=== PATIENT | female | born 1960 | race Caucasian/White ===

== ENCOUNTER 2020-05-30 09:48 | Outpatient (CLI) | payer OTHER, SELFPAY ==
--- NOTE | 2020-05-30 10:03 | MM_ITS ---
WS: [id number] DIAGNOSTIC BILATERAL DIGITAL MAMMOGRAM WITH CAD LEFT breast ultrasound, complete. HISTORY: NIPPLE DISCHARGE LT BREAST COMPARISON: 10/19/2015 TECHNIQUE: Bilateral craniocaudad, mediolateral oblique, and mediolateral views are submitted. Spot c ompression LEFT CC. Computer aided detection utilized. Breast composition: The breasts are heterogeneously dense, which may obscure small masses. Very dense fibroglandular tissue. Increased focal density in the upper outer quadrant of the LEFT breast. There are no suspicious masses or distortion identified. No nipple retraction. LEFT breast ultrasound, complete. Ultrasound is performed of the LEFT breast. Very dense fibroglandular tissue with no shadowing. No s olid masses or cysts identified. No duct dilatation. MM/[place] [id number] IMPRESSION: BI-RADS: 2-Benign FOLLOW UP: 1 Year Follow-up Bilateral mammography and ultrasound no abnormality identified to explain the n ipple discharge. If discharge persists consider surgical follow-up and evaluati on.
== END 2020-05-30 09:49 | disposition home or self-care (01) ==
PROVIDERS: Family Provider Family Medicine; PCP Family Medicine; Visit Provider Family Medicine
DX: N64.52 Nipple discharge (principal)
CPT/HCPCS: 76642; 77066

== ENCOUNTER 2021-04-01 07:02 | Outpatient (CLI) | payer OTHER, SELFPAY ==
[2021-04-01 08:11] VITALS: BMI 22.8
--- NOTE | 2021-04-01 08:12 | PC.NURSE ---
when pt arrived i explained the process of the lexiscan test. she made it clear she was very apprehensive about the nuclear aspect of the testing. i called stanley from [facility] to help explain the nuclear side of the test. she was still just very hesitant to do it. we decided to call dr thorpe to see if he would be willing to do a different test without imaging. per dr thorpe order the test will be changed to a plain treadmill. pt is okay with that and we will proceed with the plain treadmill stress test.
--- NOTE | 2021-04-01 08:15 | ECG_ITS ---
[facility] Test Date: 2021-04-01 Pat Name: Sara Bush Department: Room: Gender: Female Pulverizer: : 1960 Requested By: Demarcus Jackson Order Number: [id number] Tamela MD: Jose A Vega M.D. Interpretive Statements NAME OF STUDY: TREADMILL STRESS TEST INDICATION: Chest Pain PROCEDURE: At the baseline, the patient's blood pressure was with a heart rate of. The baseline electrocardiogram showed normal sinus rhythm with normal ST-Ts. Poor R wave progression. Possible left atrial enlargement. The patient exercised for 12 minutes and 33 seconds on a standard Ar[facility] protocol. Patient attained a maximum heart rate of 154 beats per minute( 97 % of the maximum predicted heart rate) with a blood pressure at the peak exercise of 140/66 mm Hg. The EKG at the peak exercise revealed no significant changes. Patient did not have any chest pain or any significant cardiac arrhythmias with the exercise During the recovery phase, there were no new changes. Blood pressure at the end of the recovery phase was 108/75 mm Hg with a heart rate of 99 per minute. CONCLUSION: 1. Normal EKG response to treadmill exercise 2. No exercise-induced chest pain or cardiac arrhythmia 3. Good exercise tolerance, attained a maximum of 17.2 METs Electronically Signed On 04-02-2021 22:25:06 DIVER PUMPER by Jose A Vega M.D. [email or web address]
[2021-04-01 09:00] VITALS: BP 108/75; PULSE 99
== END 2021-04-01 07:03 | disposition home or self-care (01) ==
PROVIDERS: PCP Family Medicine; Visit Provider Family Medicine
DX: R07.9 Chest pain, unspecified (principal); R53.1 Weakness
CPT/HCPCS: 93017

== ENCOUNTER → 2021-09-24 16:46 | Outpatient (BNVA) | payer OTHER, SELFPAY | PROVIDERS: PCP Family Medicine; Visit Provider Family Medicine | DX: R07.9 Chest pain, unspecified (principal); R53.1 Weakness | CPT/HCPCS: 80053; 82495; 83018 ==

== ENCOUNTER 2022-02-27 06:00 | Outpatient (RCR) | payer OTHER, SELFPAY | END 2022-03-17 23:59 | disposition home or self-care (01) | LOC: SPT 06:00 | PROVIDERS: PCP Family Medicine; Visit Provider Orthopaedic Surgery | DX: Z98.890 Other specified postprocedural states (principal); S83.281D Other tear of lateral meniscus, current injury, right knee, subsequent encounter; X58.XXXD Exposure to other specified factors, subsequent encounter | CPT/HCPCS: 97110; 97161 ==

== ENCOUNTER → 2023-09-14 13:47 | Outpatient (BNVA) | payer MEDICARE, SELFPAY | PROVIDERS: PCP Family Medicine; Visit Provider Family Medicine | DX: A93.8 Other specified arthropod-borne viral fevers (principal) | CPT/HCPCS: 80053; 85025; 86140 ==

== ENCOUNTER → 2023-09-16 10:36 | Outpatient (BNVA) | payer MEDICARE, SELFPAY | PROVIDERS: PCP Family Medicine; Visit Provider Family Medicine | DX: A93.8 Other specified arthropod-borne viral fevers (principal); R79.89 Other specified abnormal findings of blood chemistry | CPT/HCPCS: 80053; 80074; 83880; 85025; 86140 ==

== ENCOUNTER → 2023-09-18 12:07 | Outpatient (BNVA) | payer MEDICARE, SELFPAY | PROVIDERS: PCP Family Medicine; Visit Provider Family Medicine | DX: A93.8 Other specified arthropod-borne viral fevers (principal) | CPT/HCPCS: 80053; 85025 ==

== ENCOUNTER → 2023-09-23 08:42 | Outpatient (BNVA) | payer MEDICARE, SELFPAY | PROVIDERS: PCP Family Medicine; Visit Provider Family Medicine | DX: R79.89 Other specified abnormal findings of blood chemistry (principal); A93.8 Other specified arthropod-borne viral fevers | CPT/HCPCS: 80053; 85025; 86140 ==

== ENCOUNTER → 2023-09-30 11:52 | Outpatient (BNVA) | payer MEDICARE, SELFPAY | PROVIDERS: PCP Family Medicine; Visit Provider Family Medicine | DX: R79.89 Other specified abnormal findings of blood chemistry (principal); A93.8 Other specified arthropod-borne viral fevers | CPT/HCPCS: 80053; 85025 ==

== ENCOUNTER 2024-03-06 20:52 | Inpatient (IN) | payer MEDICARE, SELFPAY ==
[2024-03-06 21:18] VITALS: BP 97/59; PULSE 81; RESP 18; TEMP 37.9; O2SAT 92
--- NOTE | 2024-03-06 21:46 | XRR_ITS ---
PROCEDURE INFORMATION: Exam: XR Chest Exam date and time: 03/06/2024 10:05 PM Age: 63 years old Clinical indication: Cough and fever; Patient HX: Cough with fever TECHNIQUE: Imaging protocol: Radiologic exam of the chest. Views: 1 view. COMPARISON: No relevant prior studies available. FINDINGS: Lungs: The lung bases are suboptimally assessed due to technique however the upper lungs are clear of focal consolidation. Mild nonspecific bibasilar reticular interstitial prominence of uncertain chronicity. Comparison prior exam may be helpful if available. There is a density/mass in the right hilar region. Pleural spaces: Unremarkable. No pleural effusion. No pneumothorax. Heart/Mediastinum: Cardiac silhouette appears normal in size. No obvious vascular congestion. Bones/joints: No acute osseous findings. Other findings: Single view was submitted. XR/XR chest 1V portable [id number] IMPRESSION: 1. Right hilar density/mass. CT correlation is recommended, preferably with IV contrast if possible. 2. No obvious acute consolidation. Mild nonspecific reticular prominence in the lung bases. Suboptimal lung base assessment. Followup including lateral view may be obtained if clinically indicated.
--- NOTE | 2024-03-06 21:49 | W.ED.URI ---
HPI - URI/Sore Throat General: Chief Complaint: Upper Respiratory Infection Stated Complaint: Fever, N/V Time Seen by Provider: 03/06/24 21:20 History of Present Illness: 63-year-old female comes in today with cough, nausea and vomiting, and poor appetite starting on Thursday of last week. Patient reports being seen on Thursday at [facility] and started on antibiotics and steroids. Patient was only able to keep down 1 dose of antibiotics starting yesterday. Patient has taken some of the prednisone. Patient denies any chronic medical problems and takes no routine medicines. Patient has had a hip replacement and hip resurfacing procedure. Patient appears unwell but not toxic. Patient and family reports some mild confusion. Related Data Home Medications Medication Instructions Recorded Confirmed cholecalciferol (vitamin D3) 125 125 mcg PO DAILY 04/09/21 09/23/23 mcg (5,000 unit) capsule multivitamin 1 tab PO DAILY 04/09/21 09/23/23 omega-3 fatty acids 1,000 mg 1,000 mg PO DAILY 04/09/21 09/23/23 capsule vitamin B complex (B 1 tab PO DAILY 04/09/21 09/23/23 Complex-Vitamin B12 tablet) zinc 50 mg tablet 50 mg PO DAILY 04/09/21 09/23/23 Previous Rx's Medication Instructions Recorded magnesium oxide 400 mg PO DAILY #90 caps 04/09/21 doxycycline hyclate 100 mg capsule 100 mg PO BID #10 caps 09/24/23 Allergies Allergy/AdvReac Type Severity Reaction Status Date / Time Pertussis Vaccines Allergy Unknown Unknown Verified 03/06/24 21:25 Review of Systems General: Reports: 10 or more systems reviewed and unremarkable except in HPI and below PFSH ED PFSH: Medical History Right knee meniscal tear Surgical History S/P total hip resurfacing Family History Father Hypertension Stroke Social History Smoking and tobacco/nicotine status: never used tobacco/nicotine Alcohol intake: never Substance/Drug Use: never Physical Exam Const: COMMON NORMALS: alert HENMT: COMMON NORMALS: normocephalic HEAD & SCALP: normocephalic THROAT: posterior oropharynx normal Neck/C-Spine: COMMON NORMALS: full ROM Chest: COMMONS NORMALS: normal inspection of the chest Resp: COMMON NORMALS: normal respiratory effort AUSCULTATION: crackles (Posterior lower right) Cardio: COMMON NORMALS: regular rate and regular rhythm RATE: regular rate RHYTHM: regular rhythm GI: COMMON NORMALS: Soft to palpation PALPATION: Yes Soft to palpation Back/Pelvis: COMMON NORMALS: thoracic and lumbar spine normal to inspection Extremity: COMMON NORMALS: full ROM Neuro: SENSORIUM/ORIENTATION: Yes alert Skin: COMMON NORMALS: turgor normal GENERAL SKIN EXAM: turgor normal Course Vital Signs: Vital signs: Vital Signs Temperature 100.3 F H 03/06/24 21:18 Pulse Rate 77 03/06/24 23:01 Respiratory Rate 18 03/06/24 23:01 Blood Pressure 100/63 03/06/24 23:01 Pulse Oximetry 91 03/06/24 23:01 Oxygen Delivery Me thod Room Air 03/06/24 23:01 MDM - URI/Sore Throat Medical Decision Making Patient comes in today for illness since last Thursday. Patient was seen at her [facility] on Thursday and started on doxycycline and prednisone. Patient reports difficulty holding down fluids. Patient reports only and able to tolerate 1 dose of antibiotic as of now. Patient has taken a couple doses of the prednisone. Patient reports that the fever started on Thursday. On exam right posterior auscultation of the lungs notes some crackles. Vital signs are normal except for temperature of 100.3, and pulse ox is 92% on room air. Differential diagnosis includes pneumonia, viral syndrome, dehydration, gastroenteritis, sepsis. Patient's white blood cell count was 15.9. Sodium was 121, lactic was 1.1. Chest x-ray noted some consolidation in the infrahilar markings of the right lung field and patchy infiltrates into the right lower lung. Reviewed patient with Dr. Santana who accepted patient to [facility] for further treatment of pneumonia and hyponatremia. I did try to get a swab for COVID, flu, and RSV but patient refused swab. Lab Data 03/06/24 21:57 03/06/24 21:57 Laboratory Results WBC 15.99 10^3/uL (3.29-11.43) H 03/06/24 21:57 RBC 4.03 10^6/uL (3.85-5.65) 03/06/24 21:57 Hgb 12.00 g/dL (11.27-16.99) 03/06/24 21:57 Hct 35.4 % (36-47) L 03/06/24 21:57 MCV 87.8 fl (85-98) 03/06/24 21:57 MCH 29.8 pg (27-33) 03/06/24 21:57 MCHC 33.9 g/dL (30-55) 03/06/24 21:57 RDW 12.5 % (12.1-15.1) 03/06/24 21:57 Plt Count 169 10^3/cmm (157-399) 03/06/24 21:57 MPV 10.3 fL (7.4-10.4) 03/06/24 21:57 Lymph % (Auto) Not Reportable 03/06/24 21:57 [place] % (Auto) Not Reportable 03/06/24 21:57 Lymph # (Auto) Not Reportable 03/06/24 21:57 [place] # (Auto) Not Reportable 03/06/24 21:57 Total Counted 100 (0-100) 03/06/24 21:57 Atypical Lymphs % 2.0 % (0-5) 03/06/24 21:57 Absolute Neutrophils 15.0 10^3/cmm (1.4-6.5) H 03/06/24 21:57 Segmented Neutrophils 76 % 03/06/24 21:57 Band Neutrophils 18.0 % 03/06/24 21:57 Absolute Lymphocytes 0.5 10^3/cmm (1.2-3.4) L 03/06/24 21:57 Lymphocytes (Manual) 1 % 03/06/24 21:57 Monocytes (Manual) 3.0 % 03/06/24 21:57 Absolute Monocytes 0.5 10^3/cmm (0.1-0.6) 03/06/24 21:57 Eosinophils (Manual) 0 % 03/06/24 21:57 Absolute Eosinophils 0.0 10^3/cmm (0.0-0.7) 03/06/24 21:57 Basophils (Manual) 0.0 % 03/06/24 21:57 Absolute Basophils 0.0 10^3/cmm (0.0-0.2) 03/06/24 21:57 Platelet Estimate Normal (Normal) 03/06/24 21:57 Sodium 121 mmol/L (136-145) L 03/06/24 21:57 Potassium 4.2 mmol/L (3.5-5.1) 03/06/24 21:57 Chloride 91 mmol/L (98-107) L 03/06/24 21:57 Carbon Dioxide 22 mmol/L (22-29) 03/06/24 21:57 Anion Gap 12.2 (5-19) 03/06/24 21:57 BUN 15 mg/dL (8-23) 03/06/24 21:57 Creatinine 0.6 mg/dL (0.5-0.9) 03/06/24 21:57 GFR Calculation 100.3 mL/min (90-130) 03/06/24 21:57 Glucose 132 mg/dL (65-115) H 03/06/24 21:57 Calculated Osmolality 255 mOsm/kg (285-295) L 03/06/24 21:57 Lactic Acid 1.1 mmol/L (0.5-2.2) 03/06/24 22:14 Calcium 8.6 mg/dL (8.5-10.5) 03/06/24 21:57 Total Bilirubin 0.4 mg/dL (0.15-1.2) 03/06/24 21:57 AST 21 U/L (0-32) 03/06/24 21:57 ALT 22 U/L (0-33) 03/06/24 21:57 Alkaline Phosphatase 86 U/L (35-105) 03/06/24 21:57 Total Protein 6.9 g/dL (6.6-8.7) 03/06/24 21:57 Albumin 3.4 g/dL (3.5-5.2) L 03/06/24 21:57 Globulin 3.5 g/dL (1.3-4.6) 03/06/24 21:57 XR interpretation done by ED provider, pending radiology final review Discharge Plan Discharge Patient Disposition: Admitted As Inpatient Clinical Impression: Acute hyponatremia Pneumonia Qualifiers: Pneumonia type: due to unspecified organism Laterality: right Lung location: unspecified part of lung Qualified Code(s): J18.9 - Pneumonia, unspecified organism Condition: Stable Coding Level 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
[2024-03-06 22:06] LABS: Hematocrit 35.4 % (36-47); Mean Corpuscular HGB Conc 33.9 g/dL (30-55); Mean Corpuscular Hemoglobin 29.8 pg (27-33); Mean Corpuscular Volume 87.8 fl (85-98); Mean Platelet Volume 10.3 fL (7.4-10.4); Platelet Count 169 10^3/cmm (157-399); Red Blood Count 4.03 10^6/uL (3.85-5.65); Red Cell Distribution Width 12.5 % (12.1-15.1); White Blood Count 15.99 10^3/uL (3.29-11.43)
--- NOTE | 2024-03-06 22:06 | PC.NURSE ---
pt refusing respiratory swabs due to issues with the covid pandemic.
[2024-03-06] MEDS: cefTRIAXone 2,000 mg SDV 2000 MG IVP (22:15)
[2024-03-06] MEDS: sodium chloride 0.9% 1,000 ML 999 ML IV (22:16)
[2024-03-06 22:22] LABS: Alanine Aminotransferase 22 U/L (0-33); Albumin Level 3.4 g/dL (3.5-5.2); Alkaline Phosphatase 86 U/L (35-105); Anion Gap 12.2 (5-19); Aspartate Amino Transferase 21 U/L (0-32); Blood Urea Nitrogen 15 mg/dL (8-23); Calcium 8.6 mg/dL (8.5-10.5); Carbon Dioxide 22 mmol/L (22-29); Chloride 91 mmol/L (98-107); Globulin 3.5 g/dL (1.3-4.6); Glomerular Filtration Rate 100.3 mL/min (90-130); Glucose 132 mg/dL (65-115); Osmolality Calculated 255 mOsm/kg (285-295); Potassium 4.2 mmol/L (3.5-5.1); Sodium 121 mmol/L (136-145); Total Bilirubin 0.4 mg/dL (0.15-1.2); Total Protein 6.9 g/dL (6.6-8.7)
[2024-03-06 22:25] LABS: Absolute Segmented Neutrophil 12.2 10/cmm (1.6-7.1); Band Neutrophils Absolute 2.9 10^3/cmm (0.0-1.2); Lymphocytes 1 %; Monocytes Absolute 0.5 10^3/cmm (0.1-0.6); Segmented Neutrophils 76 %; Slide Review Slide Review Perform; Total Cells Counted 100 (0-100)
[2024-03-06 22:26] LABS: Eosinophils 0 %; Lymphocytes Absolute 0.5 10^3/cmm (1.2-3.4); Platelet Estimate Normal (Normal)
[2024-03-06 22:46] LABS: Lactic Sepsis W/Reflex 1.1 mmol/L (0.5-2.2)
[2024-03-06 23:01] VITALS: BP 100/63; PULSE 77; RESP 18; O2SAT 91
[2024-03-06 23:51] LABS: Bilirubin Urine Negative (Negative); Blood Urine Negative (Negative); Glucose Urine UA Negative (Normal); Ketones Urine Negative (Negative); Leukocyte Esterase Urine Negative (Negative); Nitrate Urine Negative (Negative); Protein Urine 2+ (Negative); Specific Gravity, Urine 1.012 (1.005-1.030); Urine Appearance Clear (CLEAR); Urine Color Yellow (Yellow)
[2024-03-06 23:52] VITALS: BP 97/62; PULSE 77; O2SAT 91
[2024-03-06 23:53] LABS: Add Urine Microscopic? YES; Bacteria Urine None Seen /hpf; Hyaline Casts Urine 0-4 /lpf; RBC Urine 0-2 /hpf (0-2); Squamous Epithelial Cell Urine 0-5 /hpf (0-5); Universal Test for UA Present (0); WBC Urine 0-5 /hpf (0-5)
[2024-03-07] VITALS (7 sets, daily range): BP systolic 109–132; BP diastolic 67–80; PULSE 68–85; RESP 17–19; TEMP 36.5–36.9; O2SAT 91–95; BMI 16.9
[2024-03-07 00:05] LABS: Add Urine Culture? No
[2024-03-07] MEDS: acetaminophen 325 mg Tablet 650 MG PO ×2 (01:26→13:25)
--- NOTE | 2024-03-07 02:00 | P.HP_ITS ---
Providers/Chief Complaint 2 Admitting Physician: Marta Santana MD Primary Care Provider: Demarcus Worley MD Chief Complaint: Fever, N/V History of Present Illness Sara Bush is a 63 year old female without significant known medical comorbidities who is presenting to the hospital today with 5 to 6 days of fever, chills, nonproductive cough, generalized fatigue and malaise which has been progressively getting worse since onset. Since yesterday she also developed nausea and vomiting. She has vomited 3-5 times today. She was prescribed doxycycline yesterday for her symptoms, however thus far has only taken 1 dose, was unable to keep it down due to excessive vomiting. No diarrhea. No other sick contacts. No URI symptoms. She was febrile to 103 Fahrenheit at home. She presented to the emergency room today for these symptoms. No recent travel. No chest pain. Currently saturating 91% on room air Review of Systems 2 General: Reports: 10 or more systems reviewed and unremarkable except in HPI and below Const: Denies: fever(s), chills or body aches Eyes: Denies: change in vision, blurry vision or photophobia ENMT: Reports: hoarseness; Denies: throat pain, enlarged tonsils, odynophagia or nasal congestion Card: Denies: chest pain, palpitations, irregular heart rhythm, edema, swelling of feet/ankles, lightheadedness, pre-syncope, dyspnea on exertion or orthopnea Resp: Denies: dyspnea, productive cough, non-productive cough, wheezing, stridor, pain on inspiration, change in phlegm color, hemoptysis or chest congestion GI: Denies: abdominal pain, nausea, vomiting, hematemesis, coffee ground emesis, dysphagia, heartburn, diarrhea, constipation, GI cramping, change in stool character, hematochezia or melena : Denies: flank pain, difficulty voiding, dysuria, urinary frequency, urinary urgency, urinary hesitancy or hematuria Musc: Denies: neck pain, back pain, extremity pain, joint swelling, joint warmth or deformity Neuro: Denies: headache(s), numbness in extremities, weakness in extremities, sensory changes, difficulty walking, frequent falls, dizziness, vertigo, behavioral changes, Slurred speech present or seizure-like activity Psych: Denies: anxiety, depression, suicidal ideation or homicidal ideation Endo: Denies: polyuria, polydipsia, tired all the time, cold intolerance or hot flashes [place]/Lymph: Denies: easy bruising or easy bleeding Medications/Allergies Home Medications Medication Instructions Recorded Confirmed Last Taken Type cholecalciferol (vitamin D3) 125 125 mcg PO DAILY 04/09/21 03/07/24 02/25/24 History mcg (5,000 unit) capsule multivitamin 1 tab PO DAILY 04/09/21 03/07/24 02/25/24 History omega-3 fatty acids 1,000 mg 1,000 mg PO DAILY 04/09/21 03/07/24 02/25/24 History capsule vitamin B complex (B 1 tab PO DAILY 04/09/21 03/07/24 02/25/24 History Complex-Vitamin B12 tablet) magnesium oxide See Rx Instructions .Route .COMPLEX 03/07/24 03/07/24 02/25/24 History zinc 10 mg tablet 30 mg PO DAILY 03/07/24 03/07/24 02/25/24 History Allergies Allergy/AdvReac Type Severity Reaction Status Date / Time Pertussis Vaccines Allergy Unknown Unknown Verified 03/06/24 21:25 PFSH Acute 2 PFSH: Medical History Right knee meniscal tear Surgical History S/P total hip resurfacing Family History Father Hypertension Stroke Social History Smoking and tobacco/nicotine status: never used tobacco/nicotine Alcohol intake: never Substance/Drug Use: never Vitals/I&O/Wt Last Vital Signs Temp 100.3 F H 03/06/24 21:18 Pulse 77 03/06/24 23:52 Resp 18 03/06/24 23:01 BP 97/62 03/06/24 23:52 Pulse Ox 91 03/06/24 23:52 O2 Del Method Room Air 03/07/24 00:27 03/06/24 03/06/24 03/07/24 14:59 22:59 06:59 Intake Total 1000 / 1000 Balance 1000 / 1000 Weight last 48 hrs Weight 50.439 kg Weight 65.771 kg Physical Exam 2 Narrative: General: No acute distress, AO x3 HEENT: PERRLA, pupils bilaterally equal and reactive, pallors not present Chest: Reduced air entry right axillary and infrascapular areas CVS: S1-S2 regular, no murmurs, no tachycardia, no gallops, no rubs Abdomen: Soft, nontender, no organomegaly, bowel sounds present Neuro: No focal deficits, no facial deformity, AO x3, power 5/5 in all limbs Data 03/06/24 21:57 03/06/24 21:57 Micro: Microbiology 03/06/24 22:50 Blood Culture - Preliminary Blood SPECIMEN COLLECTED Other data: XR/XR chest 1V portable [id number] IMPRESSION: 1. Right hilar density/mass. CT correlation is recommended, preferably with IV contrast if possible. 2. No obvious acute consolidation. Mild nonspecific reticular prominence in the lung bases. Suboptimal lung base assessment. Followup including lateral view may be obtained if clinically indicated. A&P Assessment and plan (1) Pneumonia: Qualifiers: Laterality: right Lung location: unspecified part of lung Pneumonia type: due to unspecified organism Qualified Code(s): J18.9 - Pneumonia, unspecified organism (2) Hilar mass: (3) Hyponatremia: (4) Dehydration: Plan 63-year-old lady with 5 to 6 days of fever cough generalized weakness and now more recently with multiple episodes of vomiting and inability to take p.o. intake. Chest x-ray today shows right hilar mass, possibly may be consolidation given clinical symptoms compatible with pneumonia. She has an elevated white blood cell count, has a cough, has fever up to 103 at home, currently at 100.3F in the hospital CT of the chest with contrast was recommended to evaluate for nature of mass, however patient hesitant to get CT with contrast at this time as she is concerned about radiation and contrast risks. Discussed with her that we can defer CT for tonight and reassess for CT imaging after assessing initial response to abx after the first 24 to 48 hours of treatment. With any worsening of clinical course CT may need to be repeated sooner Start empiric antibiotic treatment for community-acquired pneumonia with ceftriaxone 1 g IV every 24 hours and azithromycin 500 mg iv daily. Patient has been unable to keep down any oral intake, has vomited 5 times. Was prescribed doxycycline as outpatient but was unable to take it due to vomiting. States she has not had an appetite and has not not eaten much since onset of symptoms. For this reason would prefer to admit her as inpatient and start IV antibiotics. check urine bacterial AG /legionella AG Covid/FLU/RSV PCR Hyponatremia with sodium down to 121 along with low serum osmolality likely related to dehydration from GI losses. Check urine lites She has received 1 L of IV fluid bolus in the emergency room, continue with normal saline at 75 cc an hour. Reassess sodium with hydration DVT ppx: lovenox Full code Attestations 2 Medical Necessity Statement*: > 2 midnight stay is anticipated for iv abx treatment for community acquired pneumonia, need for iv fluids for hyponatremia Coding Level of Care Code Acute Code for [facility] Diagnoses Pneumonia J18.9 Laterality: right Lung location: unspecified part of lung Pneumonia type: due to unspecified organism Hilar mass R91.8 Hyponatremia E87.1 Dehydration E86.0
[2024-03-07 02:22] LABS: Potassium, Radom Urine 15 mmol/L
[2024-03-07 02:23] LABS: Urine Random Chloride < 10 mmol/L; Urine Random Sodium < 10 mmol/L
[2024-03-07] MEDS: azithromycin 500 MG in sodium chloride 0.9% 250 ML 250 MG IV (06:03)
[2024-03-07] MEDS: sodium chloride 0.9% 1,000 ML 75 ML IV (06:04)
[2024-03-07] MEDS: enoxaparin 40 mg/0.4 mL Syringe SUBCUT (09:28)
[2024-03-07] MEDS: pantoprazole DR 40 mg Tablet PO (09:28)
[2024-03-07 09:40] LABS: Alanine Aminotransferase 22 U/L (0-33); Alkaline Phosphatase 99 U/L (35-105); Anion Gap 11.2 (5-19); Aspartate Amino Transferase 23 U/L (0-32); Blood Urea Nitrogen 11 mg/dL (8-23); Calcium 8.5 mg/dL (8.5-10.5); Carbon Dioxide 24 mmol/L (22-29); Chloride 96 mmol/L (98-107); Creatinine Clr Calc Pharmacy 56.3767; Globulin 3.8 g/dL (1.3-4.6); Glomerular Filtration Rate 100.3 mL/min (90-130); Glucose 139 mg/dL (65-115); Osmolality Calculated 266 mOsm/kg (285-295); Potassium 4.2 mmol/L (3.5-5.1); Sodium 127 mmol/L (136-145); Total Bilirubin 0.3 mg/dL (0.15-1.2); Total Protein 6.8 g/dL (6.6-8.7)
--- NOTE | 2024-03-07 10:56 | PC.CHAP ---
Pastoral Care Encounter/Spiritual Assessment Type of Contact [] Declined oven dauber visit [] Patient/Family/Request visit [] Outpatient visit [] Follow-up visit [] Physician referral [] Code/Alert [x] Routine visit [] Staff referral [] Actively dying [] Patient sleeping [x] Family support [] [] Out of room [] Palliative care [] [] Receiving care in room [] Pre-surgical visit [] Trauma [] Long length of stay [] ICU visit [] Other: Relational/Emotional Strength [] Patient feels connected with others/family/visitors/staff [] Distress [] Loneliness/isolation [] Abandonment Spirituality of Patient [x] Person of Kristi [] Attends Latter-Day of their Kristi [x] Believes in Prayer [] Reads Bible or Advent materials [] There are 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] Prayer [x] Active listening [] Non-anxious presence [] Spiritual/emotional support [] Crisis/trauma care [] Spiritual counseling [] Bereavement support [] Provided bereavement packet [x] Provided Bible/devotional materials [] Provided toy/stuffed animal, coloring book to patient or family member [] Provided Communion [] Anointing/[place] [] Salvation [x] Completed spiritual assessment [] Other: Impact on Illness or Injury [] Angry [] Fearful [] Anxious [] Often cries [] Exhaustion [] Unable to work [] Unable to attend denominational [] Unable to walk/stand [] Unable to read [] Unable to drive [] Unable to eat/drink [] Unable to sleep [] Unable to be with family [] Patient intubated [] Other: Summary Time spent with patient 10 min
--- NOTE | 2024-03-07 11:28 | CT_ITS ---
WS: [id number] Exam: CT chest wo con [id number] Date/Time of Exam: 03/07/2024 11:28 AM Reason For Exam: R hilar density DLP: 281.[address] scans at [facility] use at least one of these dose optimization techniques: automated e xposure control; mA and/or kV adjustment per patient size (includes targeted exams where dose is matc hed to clinical indication); or iterative reconstruction. There is dense consolidation identified in the RIGHT lower lobe that extends to and encases the RIGHT mainstem bronchus. Mild mediastinal lymphadenopathy identified. The trachea and mainstem bronchi rem ain patent. The LEFT lung is clear. Trace pericardial effusion. No obvious mass or lymphadenopathy in the neck. The thoracic aorta is normal in caliber. Small posterior RIGHT pleural effusion. Trace pos terior LEFT pleural effusion. CT sections of the upper abdomen show no obvious lymphadenopathy or mas s. Tiny fatty lesion seen in the RIGHT kidney most likely a lipoma or angiomyolipoma. No obvious dest ructive bone lesion or chest wall defect. No significant axillary lymphadenopathy. Detail is limited without the use of intravenous contrast. Recommendations: Bronchoscopy and biopsy may be necessary for definitive diagnosis. CT/CT chest wo con [id number] IMPRESSION: 1. Large consolidative masslike density in the RIGHT lower lobe. There is some encasement of the RIGHT mainstem bronchus. Mild mediastinal lymphadenopathy. Pu lmonary mass felt to be most likely however this could also represent densely c onsolidated pneumonia. 2. Small pleural effusions most marked on the RIGHT.
[2024-03-07] MEDS: benzonatate 100 mg Capsule PO (12:13)
--- NOTE | 2024-03-07 15:09 | P.PN_ITS ---
Subjective 2 Subjective: She has been coughing. Describing with cough and feels like there is some phlegm kicking around but she cannot quite bring it up. Vitals/I&O/Wt Last Vital Signs Temp 97.7 F 03/07/24 12:00 Pulse 85 03/07/24 12:00 Resp 19 H 03/07/24 12:00 BP 132/80 03/07/24 12:00 Pulse Ox 92 03/07/24 12:00 O2 Del Method Room Air 03/07/24 12:00 03/07/24 03/07/24 03/07/24 06:59 14:59 22:59 Intake Total 1500 / 1500 1645 / 1645 Balance 1500 / 1500 1645 / 1645 Weight last 48 hrs Weight 50.938 kg Weight 50.439 kg Weight 65.771 kg Physical Exam 2 Const: COMMON NORMALS: patient oriented x3 and alert GENERAL APPEARANCE: c ooperative ORIENTATION/CONSCIOUSNESS: Yes awake HENMT: COMMON NORMALS: oropharynx normal Neck/C-Spine: COMMON NORMALS: no JVD Resp: OTHER: Few faint rhonchi. Cardio: COMMON NORMALS: no JVD, regular rhythm, S1 normal heart sound present, S2 normal heart sound present and No murmurs present (Cardio) RHYTHM: regular rhythm HEART SOUNDS: S1 normal heart sound present and S2 normal heart sound present GI: COMMON NORMALS: Normal to inspection, nondistended, normoactive bowel sounds present, Soft to palpation and non-tender PALPATION: Yes Soft to palpation Extremity: COMMON NORMALS: no joint enlargement and no pedal edema Neuro: COMMON NORMALS: patient oriented x3 and moves all extremities S ENSORIUM/ORIENTATION: Yes alert Skin: COMMON NORMALS: no rashes or lesions noted GENERAL SKIN EXAM: no rashes or lesions noted Data 03/06/24 21:57 03/07/24 08:47 Micro: Microbiology 03/06/24 22:38 Blood Culture - Preliminary Blood SPECIMEN COLLECTED 03/07/24 01:51 Legionella Urinary Antigen - Final Urine,Voided 03/07/24 01:51 Bacterial Antigens - Final Urine,Voided 03/06/24 22:50 Blood Culture - Preliminary Blood SPECIMEN COLLECTED A&P Assessment and plan (1) Pneumonia: Qualifiers: Laterality: right Lung location: unspecified part of lung Pneumonia type: due to unspecified organism Qualified Code(s): J18.9 - Pneumonia, unspecified organism (2) Hilar mass: (3) Hyponatremia: (4) Dehydration: Plan 63-year-old lady with 5 to 6 days of fever cough generalized weakness and now more recently with multiple episodes of vomiting and inability to take p.o. intake. Reviewed vitals, CBC, CMP, UA, chest x-ray. She has been coughing, having difficulty bringing up some phlegm. So far vomiting has resolved. She had previously declined chest CT, currently would like to pursue noncontrast chest CT, is concerned about taking contrast, does not want it at this time. She would like to pursue noncontrast study currently, then potentially reassess again for improvement/resolution of changes after treatment. Discussed and she is aware that noncontrast CT would not exclude presence of malignancy even if there were no signs at this time. Also would not help us exclude PE. Requested chest CT. reviewed study, noted large consolidative masslike density in the right lower lobe. Some encasement of right mainstem bronchus. Mild mediastinal lymphadenopathy. Pulmonary mass felt to be most likely however this could also represent densely consolidated pneumonia. Small pleural effusions most marked on the right. Given her clinical presentation including also leukocytosis, sudden onset, associated symptoms including nausea and vomiting, may suspect possibly dual etiology including superimposed pneumonia, but cannot exclude a mass at this time. Continue treatment with antibiotic. Reassess. Hyponatremia unfortunately does not help as 1 way or the other either as per discussion. Hyponatremia: Reviewed sodium, vomiting so far has subsided. Requested repeat sodium. Held further IV fluid for now. Monitor for risk of fluid overload. Recheck sodium noted 127. At this time it may be secondary to pneumonia versus pulmonary mass. Sodium reviewed, noted less than 10 in urine. With high risk of hypovolemia with vomiting, poor oral intake, may suspect hypovolemic hyponatremia at this time. Does seem to be improving with volume expansion, so far vomiting has subsided. She is tolerating oral electrolyte drinks. Encourage hydration as tolerating. Recheck sodium again. With duration of symptoms hyponatremia may be chronic, will recheck sodium, monitor for overly rapid rise of sodium with treatment with risk of ODS. Continue empiric antibiotic treatment for community-acquired pneumonia with ceftriaxone 1 g IV every 24 hours and azithromycin 500 mg iv daily. check urine bacterial AG /legionella AG Pending Covid/FLU/RSV PCR DVT ppx: lovenox Full code Attestations 2 Medical Necessity Statement*: Continue admission for assessment management of pneumonia with possible aspiration pneumonia, vomiting, complicated by severe, now moderate hyponatremia possibly chronic, possibly additional pulmonary underlying mass not currently excluded. Diagnoses Pneumonia J18.9 Laterality: right Lung location: unspecified part of lung Pneumonia type: due to unspecified organism Hilar mass R91.8 Hyponatremia E87.1 Dehydration E86.0
[2024-03-07] MEDS: guaiFENesin 600 mg Tablet 1200 MG PO (17:33)
[2024-03-07 17:43] LABS: Sodium 136 mmol/L (136-145)
[2024-03-07] MEDS: dextrose 5% 1,000 ML 30 ML IV (20:59)
[2024-03-07] MEDS: cefTRIAXone 1,000 mg SDV 1000 MG IVP (23:09)
[2024-03-08] MEDS: benzonatate 100 mg Capsule PO (01:08)
[2024-03-08 04:00] VITALS: BP 127/76; PULSE 69; RESP 16; TEMP 37.1; O2SAT 91
[2024-03-08] MEDS: guaiFENesin-dextromethorphan UDC 10 mL 5 ML PO (05:15)
[2024-03-08] MEDS: azithromycin 500 MG in sodium chloride 0.9% 250 ML 250 MG IV (05:18)
[2024-03-08 05:45] LABS: Basophils % 0.2 %; Eosinophils % 0.1 %; Hematocrit 35.6 % (36-47); Lymphocytes % 18.2 %; Mean Corpuscular HGB Conc 33.1 g/dL (30-55); Mean Corpuscular Volume 87.5 fl (85-98); Mean Platelet Volume 10.3 fL (7.4-10.4); Monocytes # 0.9 10^3/uL (0.2-0.9); Monocytes % 7.9 %; Neutrophils # 8.06 10^3/uL (1.8-7.7); Neutrophils % 72.8 %; Nucleated Red Blood Cells % 0 %; Platelet Count 193 10^3/cmm (157-399); Red Blood Count 4.07 10^6/uL (3.85-5.65); Red Cell Distribution Width 13.1 % (12.1-15.1); White Blood Count 11.08 10^3/uL (3.29-11.43)
[2024-03-08 06:05] LABS: Alanine Aminotransferase 35 U/L (0-33); Albumin Level 2.9 g/dL (3.5-5.2); Alkaline Phosphatase 123 U/L (35-105); Anion Gap 13.5 (5-19); Aspartate Amino Transferase 43 U/L (0-32); Blood Urea Nitrogen 8 mg/dL (8-23); Calcium 8.3 mg/dL (8.5-10.5); Carbon Dioxide 23 mmol/L (22-29); Chloride 102 mmol/L (98-107); Creatinine Clr Calc Pharmacy 56.2262; Globulin 3.4 g/dL (1.3-4.6); Glomerular Filtration Rate 123.8 mL/min (90-130); Glucose 108 mg/dL (65-115); Osmolality Calculated 279 mOsm/kg (285-295); Potassium 3.5 mmol/L (3.5-5.1); Sodium 135 mmol/L (136-145); Total Bilirubin 0.3 mg/dL (0.15-1.2); Total Protein 6.3 g/dL (6.6-8.7)
[2024-03-08 08:00] VITALS: BP 121/72; PULSE 66; RESP 15; TEMP 37.2; O2SAT 90
[2024-03-08] MEDS: enoxaparin 40 mg/0.4 mL Syringe SUBCUT (08:32)
[2024-03-08] MEDS: guaiFENesin 600 mg Tablet PO (08:32)
[2024-03-08 09:18] VITALS: PULSE 73; RESP 18; O2SAT 92
--- NOTE | 2024-03-08 11:32 | PM.DCS ---
Discharge Providers Date of Admission: 03/06/24 23:02 Date of Discharge: March 08, 2024 Attending Provider at Admission: Marta Santana MD Attending Provider at Discharge: Charles Charlton Primary Care Provider: Demarcus Worley MD Diagnoses at Discharge Discharge Diagnosis (1) Pneumonia: Status: Acute Qualifiers: Laterality: right Lung location: unspecified part of lung Pneumonia type: due to unspecified organism Qualified Code(s): J18.9 - Pneumonia, unspecified organism (2) Hilar mass: Status: Acute (3) Hyponatremia: Status: Acute (4) Dehydration: Status: Acute Reason for Visit Reason for Visit: Fever, N/V Brief History: Sara Bush is a 63 year old female without significant known medical comorbidities who is presenting to the hospital today with 5 to 6 days of fever, chills, nonproductive cough, generalized fatigue and malaise which has been progressively getting worse since onset. Since yesterday she also developed nausea and vomiting. She has vomited 3-5 times today. She was prescribed doxycycline yesterday for her symptoms, however thus far has only taken 1 dose, was unable to keep it down due to excessive vomiting. No diarrhea. No other sick contacts. No URI symptoms. She was febrile to 103 Fahrenheit at home. She presented to the emergency room today for these symptoms. No recent travel. No chest pain. Currently saturating 91% on room air Hospital Course Hospital Course On presentation with finding of severe hyponatremia, 121, duration unknown, possibly more than 48 hours given her duration of symptoms. She was treated initially with bowel rest, IV hydration, suspected hypovolemic hyponatremia. Treated for pneumonia, additionally with right hilar density concerning for possible masslike appearance, further assessment with considered. She was very wary of IV contrast and declined contrast CT assessment. Plain CT was obtained which showed large consolidative masslike density in the right lower lobe. With some encasement of the right mainstem bronchus. Mild mediastinal lymphadenopathy. As per discussion with her with suspicion of possible mass underlying lesion, with will need additional assessment. Symptomatically she has shown improvement, remained afebrile, vomiting had resolved. No leukocytosis, maintaining oxygenation on room air now. She is clearing secretions. On discussion of further options of continuation of IV antibiotics additional time, reports returning home with oral antibiotic with Levaquin, with discussion of possible adverse effects, she prefers to discharge home at current time given as showing good improvement so far. She will additionally follow-up with primary provider to further discuss timing and modality of repeat imaging to further assess for possible right hilar mass. She is considering that she may proceed with a contrast study on the repeat assessment to further delineate the equivocal findings. She is also referred for additional assessment by pulmonology. She otherwise has been tolerating oral intake, is taking electrolyte replacement. Sodium is improved at 135. Please follow-up sodium level. Please follow-up and further assess depending on findings the incidentally noted minimal transaminitis, AST 43, ALT 35, as well as chronic mild alk phos elevation since at least August. Physical Exam Const: COMMON NORMALS: patient oriented x3 and alert GENERAL APPEARANCE: cooperative ORIENTATION/CONSCIOUSNESS: Yes awake HENMT: COMMON NORMALS: oropharynx normal Neck/C-Spine: COMMON NORMALS: no JVD Resp: COMMON NORMALS: clear to auscultation bilaterally AUSCULTATION: clear to auscultation bilaterally Cardio: COMMON NORMALS: no JVD, regular rhythm, S1 normal heart sound present, S2 normal heart sound present and No murmurs present (Cardio) RHYTHM: regular rhythm HEART SOUNDS: S1 normal heart sound present and S2 normal heart sound present GI: COMMON NORMALS: Normal to inspection, nondistended, normoactive bowel sounds present, Soft to palpation and non-tender PALPATION: Yes Soft to palpation Extremity: COMMON NORMALS: no joint enlargement and no pedal edema Neuro: COMMON NORMALS: patient oriented x3 and moves all extremities SENSORIUM/ORIENTATION: Yes alert Skin: COMMON NORMALS: no rashes or lesions noted GENERAL SKIN EXAM: no rashes or lesions noted Discharge Data Studies Completed and Pending Completed Studies During Hospitalization Category Date Time Status CT chest wo con [id number] Routine Cat Scan 03/07/24 11:28 Completed XR chest 1V portable [id number] Stat Exams 03/06/24 21:46 Completed Pending at discharge Category Date Time Status Blood Culture Stat Lab 03/06/24 22:38 Results Covid / Flu / RSV PCR Stat Lab 03/07/24 01:29 Uncollected MRSA PCR OZH (swab) Routine Lab 03/07/24 01:29 Uncollected Radiology Impressions Chest X-Ray 03/06/24 21:46 IMPRESSION: 1. Right hilar density/mass. CT correlation is recommended, preferably with IV contrast if possible. 2. No obvious acute consolidation. Mild nonspecific reticular prominence in the lung bases. Suboptimal lung base assessment. Followup including lateral view may be obtained if clinically indicated. Chest CT 03/07/24 11:28 IMPRESSION: 1. Large consolidative masslike density in the RIGHT lower lobe. There is some encasement of the RIGHT mainstem bronchus. Mild mediastinal lymphadenopathy. Pulmonary mass felt to be most likely however this could also represent densely consolidated pneumonia. 2. Small pleural effusions most marked on the RIGHT. Laboratory Results WBC 11.08 10^3/uL (3.29-11.43) 03/08/24 05:35 RBC 4.07 10^6/uL (3.85-5.65) 03/08/24 05:35 Hgb 11.80 g/dL (11.27-16.99) 03/08/24 05:35 Hct 35.6 % (36-47) L 03/08/24 05:35 MCV 87.5 fl (85-98) 03/08/24 05:35 MCH 29.0 pg (27-33) 03/08/24 05:35 MCHC 33.1 g/dL (30-55) 03/08/24 05:35 RDW 13.1 % (12.1-15.1) 03/08/24 05:35 Plt Count 193 10^3/cmm (157-399) 03/08/24 05:35 MPV 10.3 fL (7.4-10.4) 03/08/24 05:35 Neut % (Auto) 72.8 % 03/08/24 05:35 Lymph % (Auto) 18.2 % 03/08/24 05:35 Johnston % (Auto) 7.9 % 03/08/24 05:35 Eos % (Auto) 0.1 % 03/08/24 05:35 Baso % (Auto) 0.2 % 03/08/24 05:35 Neut # (Auto) 8.06 10^3/uL (1.8-7.7) H 03/08/24 05:35 Lymph # (Auto) 2.0 10^3/uL (0.8-4.8) 03/08/24 05:35 Johnston # (Auto) 0.9 10^3/uL (0.2-0.9) 03/08/24 05:35 Eos # (Auto) 0.0 10^3/uL (0.0-0.8) 03/08/24 05:35 Baso # (Auto) 0.0 10^3/uL (0.0-0.1) 03/08/24 05:35 Nucleated RBC % (auto) 0 % 03/08/24 05:35 Total Counted 100 (0-100) 03/06/24 21:57 Atypical Lymphs % 2.0 % (0-5) 03/06/24 21:57 Absolute Neutrophils 15.0 10^3/cmm (1.4-6.5) H 03/06/24 21:57 Segmented Neutrophils 76 % 03/06/24 21:57 Band Neutrophils 18.0 % 03/06/24 21:57 Absolute Lymphocytes 0.5 10^3/cmm (1.2-3.4) L 03/06/24 21:57 Lymphocytes (Manual) 1 % 03/06/24 21:57 Monocytes (Manual) 3.0 % 03/06/24 21:57 Absolute Monocytes 0.5 10^3/cmm (0.1-0.6) 03/06/24 21:57 Eosinophils (Manual) 0 % 03/06/24 21:57 Absolute Eosinophils 0.0 10^3/cmm (0.0-0.7) 03/06/24 21:57 Basophils (Manual) 0.0 % 03/06/24 21:57 Absolute Basophils 0.0 10^3/cmm (0.0-0.2) 03/06/24 21:57 Nucleated RBCs # 0.0 /100WBC 03/08/24 05:35 Platelet Estimate Normal (Normal) 03/06/24 21:57 Sodium 135 mmol/L (136-145) L 03/08/24 05:35 Potassium 3.5 mmol/L (3.5-5.1) 03/08/24 05:35 Chloride 102 mmol/L (98-107) 03/08/24 05:35 Carbon Dioxide 23 mmol/L (22-29) 03/08/24 05:35 Anion Gap 13.5 (5-19) 03/08/24 05:35 BUN 8 mg/dL (8-23) 03/08/24 05:35 Creatinine 0.5 mg/dL (0.5-0.9) 03/08/24 05:35 GFR Calculation 123.8 mL/min (90-130) 03/08/24 05:35 Glucose 108 mg/dL (65-115) 03/08/24 05:35 Calculated Osmolality 279 mOsm/kg (285-295) L 03/08/24 05:35 Lactic Acid 1.1 mmol/L (0.5-2.2) 03/06/24 22:14 Calcium 8.3 mg/dL (8.5-10.5) L 03/08/24 05:35 Total Bilirubin 0.3 mg/dL (0.15-1.2) 03/08/24 05:35 AST 43 U/L (0-32) H 03/08/24 05:35 ALT 35 U/L (0-33) H 03/08/24 05:35 Alkaline Phosphatase 123 U/L (35-105) H 03/08/24 05:35 Total Protein 6.3 g/dL (6.6-8.7) L 03/08/24 05:35 Albumin 2.9 g/dL (3.5-5.2) L 03/08/24 05:35 Globulin 3.4 g/dL (1.3-4.6) 03/08/24 05:35 Urine Color Yellow (Yellow) 03/06/24 23:35 Urine Appearance Clear (CLEAR) 03/06/24 23:35 Urine pH 6.0 (5-7) 03/06/24 23:35 Ur Specific [place] 1.012 (1.005-1.030) 03/06/24 23:35 Urine Protein 2+ (Negative) A 03/06/24 23:35 Urine Glucose (UA) Negative (Normal) 03/06/24 23:35 Urine Ketones Negative (Negative) 03/06/24 23:35 Urine Blood Negative (Negative) 03/06/24 23:35 Urine Nitrate Negative (Negative) 03/06/24 23:35 Urine Bilirubin Negative (Negative) 03/06/24 23:35 Urine Urobilinogen 1.0 mg/dL (Negative) 03/06/24 23:35 Ur Leukocyte Esterase Negative (Negative) 03/06/24 23:35 Urine RBC 0-2 /hpf (0-2) 03/06/24 23:35 Urine WBC 0-5 /hpf (0-5) 03/06/24 23:35 Ur Squamous Epith Cells 0-5 /hpf (0-5) 03/06/24 23:35 Calcium Oxalate Crystal 5-10 /hpf H 03/06/24 23:35 Amorphous Sediment Not Reportable 03/06/24 23:35 Urine Bacteria None seen /hpf (NONE) 03/06/24 23:35 Hyaline Casts 0-4 /lpf H 03/06/24 23:35 Ur Random Sodium < 10 mmol/L 03/07/24 01:51 Ur Random Potassium 15 mmol/L 03/07/24 01:51 Ur Random Chloride < 10 mmol/L 03/07/24 01:51 Vitals Last Vital Signs Temp 98.9 F 03/08/24 08:00 Pulse 73 03/08/24 09:18 Resp 18 03/08/24 09:18 BP 121/72 03/08/24 08:00 Pulse Ox 92 03/08/24 09:18 O2 Del Method Room Air 03/08/24 09:18 Discharge Plan Discharge Patient Disposition: Home Condition: Stable Prescriptions: New dextromethorphan-guaifenesin 10-100 mg/5 mL Syrup 5 ml PO Q4H PRN (Reason: Cough) Qty: 237 0RF levofloxacin 750 mg tablet 750 mg PO DAILY 7 Days Qty: 7 0RF Continued multivitamin Tablet 1 tab PO DAILY cholecalciferol (vitamin D3) 125 mcg (5,000 unit) capsule 125 mcg PO DAILY vitamin B complex [B Complex-Vitamin B12] Tablet 1 tab PO DAILY omega-3 fatty acids 1,000 mg capsule 1,000 mg PO DAILY zinc 10 mg Tablet 30 mg PO DAILY magnesium oxide 400 mg magnesium capsule See Rx Instructions .ROUTE .COMPLEX Rx Instructions: 400 mg orally EVERY OTHER DAY Discharge Orders: Discharge Order (Routine); Ordered 03/08/24 Ordered By: Charles Charlton Referrals: Pulmonary [Provider Group] (Possible mass) Syed Goodman MD [Referring] - (We have notified this Pulmonology clinic of the need for a follow-up appointment to be scheduled. If you have not heard from them within the next 2 business days, please call them directly. A referral has been sent to their intake department.) Demarcus Worley MD [Primary Care Provider] - 03/17/24 9:10 am (We have notified your physician's clinic of the need for a follow-up appointment to be scheduled. If you have not heard from them within the next 2 business days, please call them directly. ) Patient Instructions: Levofloxacin (By mouth) (Levaquin, Levaquin Leva-christ), Analgesic/Antitussive/Decongestant/Expectorant Combination (By mouth), Hyponatremia (GEN), Pneumonia (GEN), Pneumonia Stoplight Activity Restrictions/Additional Instructions: Continue incomplete antibiotic course with Levaquin. As discussed, discontinue developing case of any other concerning symptoms and contact a provider. Follow-up with your primary doctor for reassessment. Discuss with your primary doctor regaring further assessment of the dense consolidation pneumonia versus possible mass in the right hilar region of the lung. Discuss further consideration of repeat CT and timing as well as contrast. As per our discussion you are also referred for assessment by a lung specialist. Have a primary doctor recheck sodium level. Continue electrolyte replacement. Regular diet. Have your primary doctor follow-up. Minimal transaminitis. Mild chronic alk phos elevation. Seek medical attention in case of any worsening or new concerning symptoms. Discharge Attestations Time Spent in Discharge Care*: greater than 30 min Quality Metrics Clinical Quality Measures [ No reported AMI, CVA or VTE this stay] Coding Level of Care Code 57894 Total time (in minutes) for Discharge: 45 Diagnoses Pneumonia J18.9 Laterality: right Lung location: unspecified part of lung Pneumonia type: due to unspecified organism Hilar mass R91.8 Hyponatremia E87.1 Dehydration E86.0
[2024-03-08 12:00] VITALS: BP 123/69; PULSE 76; RESP 17; TEMP 36.8; O2SAT 91
[2024-03-08 13:20] VITALS: BP 123/69; PULSE 76; RESP 17; TEMP 36.8; O2SAT 91
== END 2024-03-08 12:55 | disposition home or self-care (01) | DRG 640 ==
LOC: ER 22:37 → MEDSURG 23:31
PROVIDERS: Admitting Provider Student in an Organized Health Care Education/Training Program; Emergency Provider Nurse Practitioner Family; PCP Family Medicine; Visit Provider Internal Medicine
DX: E87.1 Hypo-osmolality and hyponatremia (principal); J18.9 Pneumonia, unspecified organism; R91.8 Other nonspecific abnormal finding of lung field; E86.0 Dehydration
CPT/HCPCS: 36415; 71045; 71250; 80053; 81001; 82436; 83605; 84133; 84295; 84300; 85007; 85025; 86403; 87040; 87449; 96372; 96374; 99285; J0456; J0696; J1650; J7030; J7050; J7070

== ENCOUNTER 2024-04-20 14:42 | Outpatient (CLI) | payer MEDICARE, SELFPAY ==
--- NOTE | 2024-04-20 15:00 | CT_ITS ---
WS: [id number] CT chest wo con [id number] HISTORY: f/u on lung mass TECHNIQUE: Axial imaging performed through the thorax. Coronal and sagittal reformats are submitted. All CT scans at [facility] use at least one of these dose optimization techniques: automated exposure control; mA and/or kV adjustment per patient size (includes targeted exams where dose is mat ched to clinical indication); or iterative reconstruction. CONTRAST: None DLP: 237.20 mGy.cm COMPARISON: Chest CT 03/07/2024 Lungs and central airway: Previously described dense area of consolidation centered at the RIGHT hilu m extending into the RIGHT lower lobe has completely resolved. There are a few scattered subpleural n odules which are unchanged. Pleura: Normal. No pleural effusion. Heart and pericardium: Normal size heart with no pericardial effusion. Mediastinum and cristal: There is continued fullness at the RIGHT hilum. Cannot exclude adenopathy witho ut IV contrast. Vessels: Mild atherosclerosis aorta. No aneurysm. Normal size pulmonary artery. Chest wall and lower neck: No soft tissue masses. Upper abdomen: Incompletely visualized 1.4 cm cyst closely associated with the upper pole of the RIGH T kidney. Small hiatal hernia. Osseous structures: No destructive process. CT/CT chest wo con [id number] IMPRESSION: 1. Complete resolution of the dense consolidation at the RIGHT hilum and RIGHT lower lobe since 03/07/2024. Consistent with resolved pneumonia. 2. Continued fullness at the RIGHT hilum. Cannot exclude or comment on adenopa thy without IV contrast. 3. Small hiatal hernia.
== END 2024-04-20 14:43 | disposition home or self-care (01) ==
LOC: RAD 14:43
PROVIDERS: PCP Family Medicine; Visit Provider Family Medicine
DX: R91.8 Other nonspecific abnormal finding of lung field (principal); K44.9 Diaphragmatic hernia without obstruction or gangrene
CPT/HCPCS: 71250

== ENCOUNTER 2024-07-07 11:47 | Outpatient (CLI) | payer MEDICARE, SELFPAY ==
--- NOTE | 2024-07-07 12:30 | CT_ITS ---
WS: [id number] CT chest w con* [id number] HISTORY: hilar mass TECHNIQUE: Axial imaging performed through the thorax. Coronal and sagittal reformats are submitted. All CT scans at [facility] use at least one of these dose optimization techniques: automated exposure control; mA and/or kV adjustment per patient size (includes targeted exams where dose is matched to clinical indication); or iterative reconstruction. CONTRAST: Omnipaque 350; 100 mL IV. DLP: 252.64 mGy.cm COMPARISON: 04/20/2024, 03/07/2024 Lungs and central airway: Mild biapical pleural scarring. There are a few scattered micronodules. No new or enlarging mass. No pneumonia. Pleura: Normal. No pleural effusion. Heart and pericardium: Mild RIGHT heart enlargement. Mediastinum and cristal: No mediastinal or hilar adenopathy. Hilar regions are much better visualized and evaluated with IV contrast. There are small, nonpathologic mediastinal and hilar lymph nodes. Vessels: Normal size aortic and pulmonary artery. No coronary artery calcifications. Chest wall and lower neck: No soft tissue masses. Upper abdomen: Normal. Osseous structures: No destructive process. CT/CT chest w con* [id number] IMPRESSION: 1. No hilar lymphadenopathy or mass. 2. No new or enlarging pulmonary mass or nodule. 3. Mild cardiomegaly.
[2024-07-07] MEDS: iohexol 350 mg/mL 500 mL Btl (per mL) IV (12:51)
[2024-07-07 16:02] LABS: Blood Urea Nitrogen 18 mg/dL (8-23); Glomerular Filtration Rate 71.8 mL/min (90-130)
== END 2024-07-07 11:48 | disposition home or self-care (01) ==
LOC: RAD 11:47
PROVIDERS: PCP Family Medicine; Visit Provider Family Medicine
DX: R91.8 Other nonspecific abnormal finding of lung field (principal); I51.7 Cardiomegaly; R59.0 Localized enlarged lymph nodes
CPT/HCPCS: 71260; 82565; 84520